=== PATIENT | female | born 1940 | race Two or more races ===

== ENCOUNTER 2025-01-01 19:05 | Emergency (ER) | payer OTHER ==
[~2025-01-01] VITALS: Ht 160 cm; Wt 55.6 kg
--- NOTE | 2025-01-01 20:24 | ED.PDOC ---
History of Present Illness HPI Comments 84F presents to the Er w/ no prior Hx associated to the c/c of a fall. pt reports on falling at 1720 today while mopping and has a LAC on the right face. Pt went to where they gave the pt a Trx, and was discharged but requested a head CT in the ER to rule out any intracranial hemorrhages or skull fractures. Denies chills, fever, N/ V/D, SOB, CP or other associated symptom's, modifiers, or recent injuries or sick contact at this time. Chief Complaint: Fall Injury Time Seen by MD: 20:00 Primary Care Provider: DEMETRIA Reviewed Notes: Nurses Notes, Medications, Allergies Allergies: Coded Allergies: Codeine (Verified Allergy, Unknown, 01/01/25) Penicillins (Verified Allergy, Unknown, 01/01/25) Information Source: Patient, Relative, Emergency Med Personnel Mode of Arrival: Ambulatory Severity: Moderate Timing: Minutes Duration: Since onset, Minutes Prehospital treatment: None Past Medical History PAST MEDICAL HISTORY: Denies Surgical History: Denies all surgeries DRAWBENCH OPERATOR HELPER History: No Pertinent DRAWBENCH OPERATOR HELPER History Family History Family History: Reviewed,noncontributory to illness, Unknown Social History Smoker: Non-Smoker Alcohol: Denies ETOH Use Drugs: Denies Drug Use Lives In: Home Constitutional: denies: chills, diaphoresis, fatigue, fever, malaise, sweats, weakness, others (face LAC) EENTM: reports: others (Right-sided head trauma); denies: blurred vision, double vision, ear bleeding, ear discharge, ear drainage, ear pain, ear ringing, eye pain, eye redness, hearing loss, mouth pain, mouth swelling, nasal discharge, nose bleeding, nose congestion, nose pain, photophobia, tearing, throat pain, throat swelling, voice changes Respiratory: denies: cough, hemoptysis, orthopnea, SOB at rest, shortness of breath, SOB with excertion, stridor, wheezing, others Cardiovascular: denies: chest pain, dizzy spells, diaphoresis, Dyspnea on exertion, edema, irregular heart beat, left arm pain, lightheadedness, palpitations, PND, syncope, others Gastrointestinal: denies: abdomen distended, abdominal pain, blood streaked bowels, constipated, diarrhea, dysphagia, difficulty swallowing, hematemesis, melena, nausea, poor appetite, poor fluid intake, rectal bleeding, rectal pain, vomiting, others Genitourinary: denies: abnormal vagina bleeding, burning, dyspareunia, dysuria, flank pain, frequency, hematuria, incontinence, pain, , vagina discharge, urgency, others Neurological: denies: dizziness, fainting, headache, left sided numbness, left sided weakness, numbness, paresthesia, pre-existing deficit, right sided numbness, right sided weakness, seizure, speech problems, tingling, tremors, weakness, others Musculoskeletal: denies: back pain, gout, joint pain, joint swelling, muscle pain, muscle stiffness, neck pain, others Integumetry: reports: laceration (Patient arrives with repaired laceration to right-sided face); denies: bruises, change in color, change in hair/nails, dryness, lesions, lumps, rash, wounds, others Allergic/Immunocompromised: denies: Difficulty Healing, Frequent Infections, Hives, Itching, others Hematologic/Lymphatic: denies: anemia, blood clots, easy bleeding, easy bruising, swollen glands, others Endocrine: denies: excessive hunger, excessive sweating, excessive thirst, excessive urination, flushing, intolerance to cold, intolerance to heat, unexplained weight gain, unexplained weight loss, others Psychiatric: denies: anxiety, bipolar disorder, depression, hopeless, panic disorder, schizophrenia, sleepless, suicidal, others All Other Systems: Reviewed and Negative Physical Exam General Appearance: No Apparent Distress (Patient was not in any distress at time of evaluation. The patient advise pleasant and conversational.), Normal HEENT: Head (Patient arrives with Steri-Strips and Dermabonded wound to right- sided face that has bandage. Patient has ecchymosis on the lateral aspect of the right eye and temporal region. No eye involvement.), Pharynx Normal, TMs Normal Neck: Full Range of Motion, Non-Tender, Normal, Normal Inspection Respiratory: Chest Non-Tender, Lungs Clear, No Accessory Muscle Use, No Respiratory Distress, Normal Breath Sounds Cardiovascular: No Edema, No JVD, No Murmur, No Gallop, Normal Peripheral Pulses, Regular Rate/Rhythm Breast Exam: Deferred Gastrointestinal: No Organomegaly, Non Tender, No Pulsatile Mass, Normal Bowel Sounds, Soft Genitalia: Deferred Pelvic: Deferred Rectal: Deferred Extremities: No calf tenderness, Normal capillary refill, Normal range of motion, Non-tender, No pedal edema Musculoskeletal : Apperance: Normal Neurologic: Alert, Normal Affect, Normal Mood Cerebellar Function: NOT DONE Reflexes: NOT DONE Skin: Dry, Normal Color, Warm Lymphatic: No Adenopathy Was a procedure done? Was a procedure done?: No Differential Dx Considerations may include: Subarachnoid hemorrhage, subdural hematoma, skull fracture, head trauma X-Ray, Labs, Meds, VS Vital Signs Date Time Temp Pulse Resp B/P (MAP) Pulse Ox O2 Delivery O2 Flow Rate FiO2 01/01/25 20:48 97.8 76 14 149/88 (108) 92 97.8 01/01/25 19:34 98.8 79 16 173/75 (107) 97 98.8 X-Ray, Labs, Meds, VS Comment All studies performed the ED were evaluated by me personally. Head CT was unremarkable for any subarachnoid hemorrhage, subdural hematoma or skull fracture. Advised patient utilize medication as prescribed by prior provider. Advised follow up with the primary care provider as advised. Time of 1ST Reevaluation: 22:00 Reevaluation 1ST: Improved Consultation: PCP Patient Education/Counseling: Diagnosis, Treatment, Prognosis Family Education/Counseling: Diagnosis, Treatment, No Family Present Departure 1 Departure Time of Disposition: 22:00 Impression: Primary Impression: Head trauma Disposition: 01 HOME / SELF CARE / HOMELESS Condition: Stable Additional Instructions: CT studies were unremarkable for any intracranial process. Advise continuation of wound management as advised by prior provider. Patient should follow up with primary care provider in the next few days for re-evaluation. Discharged With: Self, Relative Critical Care Note Critical Care Time?: No Stability Stability form required: No Heart Score Heart Score: Heart Score Response (Comments) Value History N/A 0 EKG N/A 0 Age N/A 0 Risk Factors N/A 0 Troponin N/A 0 Total 0 I personally scribed for KATHERIN MURRAY PAC ([email or web address]) on 01/01/25 at 20:24. Electronically submitted by Ellis Piper ([email or web address]). KATHERIN MURRAY PAC January 01, 2025 20:24
[2025-01-01 20:48] VITALS: BP 149/88; PULSE 76; RESP 14; TEMP 97.8; O2SAT 92
--- NOTE | 2025-01-01 21:44 | DVH ---
EXAM: CT HEAD WITHOUT CONTRAST INDICATION: Fall/right-sided head trauma TECHNIQUE: CT of the head without intravenous contrast. Radiation Dose Information: CT Dose: CTDI volume is 50.87 mGy. Dose-length product is 1002.63 mGy*cm The dose indicators for CT are the volume Computed Tomography (CT) Dose Index (CTDIvol) and the Dose Length Product (DLP), and are measured in units of mGy and mGy-cm, respectively. These indicators are not patient dose, but values generated from the CT scanner acquisition factors. The report includes radiation exposure data for exposures received during this examination. COMPARISON: None FINDINGS: There is no evidence of acute intracranial hemorrhage, extra-axial collection, mass effect, midline s hift, herniation or hydrocephalus. The ventricles, sulci and cisterns are age appropriate. The swenson-white differentiation is intact. Patchy periventricular and subcortical white matter hypoattenuation is nonspecific but may be related to small vessel ischemic disease. The visualized paranasal sinuses and mastoid air cells are clear. The surrounding soft tissues and osseous structures are unremarkable. IMPRESSION: 1. No acute intracranial hemorrhage 2. No CT findings of territorial ischemia. 3. 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 No CT findings of displaced skull fracture. HS:Y
[2025-01-01] MEDS: HYDROcodone-ACET 5/325MG TAB PO ONE (22:21)
== END 2025-01-01 22:22 | disposition home or self-care (01) ==
LOC: ER 19:07
DX: S01.81XA Laceration without foreign body of other part of head, initial encounter (principal); Z88.0 Allergy status to penicillin; Z88.5 Allergy status to narcotic agent; W18.39XA Other fall on same level, initial encounter; Y93.89 Activity, other specified; Y92.89 Other specified places as the place of occurrence of the external cause; Y99.8 Other external cause status
CPT/HCPCS: 70450

== ENCOUNTER 2025-06-16 22:31 | Emergency (ER) | payer MEDICARE, MEDICAID ==
[~2025-06-16] VITALS: Ht 149.9 cm; Wt 50.0 kg
--- NOTE | 2025-06-16 23:46 | DVH ---
INDICATION: lumbar back pain TECHNIQUE: 4 views of the lumbar spine were obtained. COMPARISON: None Findings/impression: 1. Indeterminate age compression fracture of the T11 vertebral body. 2. Moderate degenerative changes throughout the lumbar spine.
[2025-06-17 00:10] VITALS: BP 138/68; PULSE 74; RESP 18; TEMP 97.9; O2SAT 98
[2025-06-17] MEDS ORDERED: METH-1181 PO (00:19)
--- NOTE | 2025-06-17 00:19 | ED.PDOC ---
Back pain HPI HPI Comments 85-YEAR-OLD FEMALE PRESENTS TO ER WITH COMPLAINTS OF BACK PAIN X1 DAY. PATIENT WITH PAST MEDICAL HISTORY SIGNIFICANT FOR CHRONIC LOWER LUMBAR BACK PAIN REPORTS THAT SHE STARTED EXPERIENCING WORSENING LOWER LUMBAR BACK PAIN THIS MORNING. DENIES ANY TRAUMA/FALLS OR KNOWN INJURY TO CAUSE OR WORSENING LOWER BACK PAIN AND RATES HER CURRENT PAIN A 10/10 DIFFUSE TO LOWER LUMBAR REGION WITHOUT RADIATION. REPORTS THAT SHE HAS BEEN TAKING NORCO 10/325 MG WITH SLIGHT RELIEF AND REPORTS THAT SHE HAS HAD IMPROVEMENT WITH HER ACUTE EXACERBATIONS OF BACK PAIN WITH METHOCARBAMOL IN THE PAST. PATIENT PRESENTS TO ER IN WHEELCHAIR IN MILD DISTRESS WITH VITALS STABLE. DENIES FEVER, BODY ACHES, CHILLS, NIGHT SWEATS, SHORTNESS OF BREATH, CHEST PAIN, ABDOMINAL/PELVIC PAIN, EXTREMITY WEAKNESS, CHANGES IN URINATION/BM OR ANY FURTHER SYMPTOMS/COMPLAINTS Chief Complaint: Back Pain Time Seen by MD: 22:45 Primary Care Provider: DEMETRIA Oquendo Notes: Nurses Notes, Medications, Allergies Allergies: Coded Allergies: Codeine (Verified Allergy, Unknown, 01/01/25) Penicillins (Verified Allergy, Unknown, 01/01/25) Home Meds Active Scripts Methocarbamol (Methocarbamol) 500 Mg Tab, 500 MG PO Q6HPRN, #14 TAB 0 Refills Prov:YOJANA MILIAN 06/17/25 Information Source: Patient Mode of Arrival: EMS Past Medical History PAST MEDICAL HISTORY: UTI'S Past Medical History (Other): CHRONIC LUMBAR BACK PAIN T11 FX Surgical History (Other): SPINAL STIMULATOR OPHTHALMIC PATHOLOGIST History: No Pertinent OPHTHALMIC PATHOLOGIST History Family History Family History: Unknown Social History Smoker: Non-Smoker Alcohol: Denies ETOH Use Drugs: Denies Drug Use Lives In: Home Constitutional: denies: chills, diaphoresis, fatigue, fever, malaise, sweats, weakness, others EENTM: denies: blurred vision, double vision, ear bleeding, ear discharge, ear drainage, ear pain, ear ringing, eye pain, eye redness, hearing loss, mouth pain, mouth swelling, nasal discharge, nose bleeding, nose congestion, nose pain, photophobia, tearing, throat pain, throat swelling, voice changes, others Respiratory: denies: cough, hemoptysis, orthopnea, SOB at rest, shortness of breath, SOB with excertion, stridor, wheezing, others Cardiovascular: denies: chest pain, dizzy spells, diaphoresis, Dyspnea on exertion, edema, irregular heart beat, left arm pain, lightheadedness, palpitations, PND, syncope, others Gastrointestinal: denies: abdomen distended, abdominal pain, blood streaked bowels, constipated, diarrhea, dysphagia, difficulty swallowing, hematemesis, melena, nausea, poor appetite, poor fluid intake, rectal bleeding, rectal pain, vomiting, others Genitourinary: denies: abnormal vagina bleeding, burning, dyspareunia, dysuria, flank pain, frequency, hematuria, incontinence, pain, , vagina discharge, urgency, others Neurological: denies: dizziness, fainting, headache, left sided numbness, left sided weakness, numbness, paresthesia, pre-existing deficit, right sided numbness, right sided weakness, seizure, speech problems, tingling, tremors, weakness, others Musculoskeletal: reports: others ( IN HPI) Integumetry: denies: bruises, change in color, change in hair/nails, dryness, laceration, lesions, lumps, rash, wounds, others Allergic/Immunocompromised: denies: Difficulty Healing, Frequent Infections, Hives, Itching, others Hematologic/Lymphatic: denies: anemia, blood clots, easy bleeding, easy bruising, swollen glands, others Endocrine: denies: excessive hunger, excessive sweating, excessive thirst, excessive urination, flushing, intolerance to cold, intolerance to heat, unexplained weight gain, unexplained weight loss, others Psychiatric: denies: anxiety, bipolar disorder, depression, hopeless, panic disorder, schizophrenia, sleepless, suicidal, others Physical Exam General Appearance: Mild Distress HEENT: PERRL/EOMI Neck: Full Range of Motion, Non-Tender, Normal Respiratory: Chest Non-Tender, Lungs Clear, No Accessory Muscle Use, No Respiratory Distress, Normal Breath Sounds Cardiovascular: No Murmur, No Gallop, Regular Rate/Rhythm Breast Exam: Deferred Gastrointestinal: Non Tender, No Pulsatile Mass, Soft Genitalia: Deferred Pelvic: Deferred Rectal: Deferred Extremities: Normal capillary refill, Normal range of motion Musculoskeletal : Extremity Location: Back (TTP TO BILATERAL LOWER LUMBAR PARASPINALS NOTED. NO SKIN CHANGES NOTED. NO BONY TENDERNESS TO LUMBAR/THORACIC SPINE NOTED. GAIT SLOWED WITH USE OF ASSISTANCE) Neurologic: Alert, No Motor Deficits, No Sensory Deficits Cerebellar Function: Normal Reflexes: Normal Skin: Dry, Normal Color, Warm Peripheral Pulses: 2+ carotid (R), 2+ carotid (L), 2+ femoral (R), 2+ femoral (L), 2+ dorsalis pedis (R), 2+ dorsalis pedis (L), 2+ Radial (R), 2+ Radial (L), 2+ Brachial (R), 2+ Brachial (L) Lymphatic: No Adenopathy Was a procedure done? Was a procedure done?: No Sedation Sedation?: No Back Pain Differential Dx Differential Diagnosis: AAA, Fracture, Urolithiasis X-Ray, Labs, Meds, VS Vital Signs Date Time Temp Pulse Resp B/P (MAP) Pulse Ox O2 Delivery O2 Flow Rate FiO2 06/17/25 00:10 97.9 74 18 138/68 (91) 98 97.9 06/17/25 00:10 Room Air* 0 21 06/16/25 22:33 97.9 74 18 138/68 98 97.9 PATIENT: BELLA YORKCT: [id number]: [id number] : 1940 LOC: ER ROOM / BED: / AGE / SEX: 85 / F ADM STATUS: REG ER SERVICE 45 ORDERING PHYSICIAN: YOJANA MILIAN PROCEDURE(s): LUMB2 - LUMBAR SPINE 3 VIEW REASON: lumbar back pain ORDER NUMBER(s): [id number], ACCESSION NUMBER(s): [id number] INDICATION: lumbar back pain TECHNIQUE: 4 views of the lumbar spine were obtained. COMPARISON: None Findings/impression: 1. Indeterminate age compression fracture of the T11 vertebral body. 2. Moderate degenerative changes throughout the lumbar spine. ATED BY: YVONNE SYLVESTER MD DICTATED DATE/TIME: 06/16/252343 SIGNED BY: YVONNE SYLVESTER MD SIGNED DATE/TIME: 06/16/252343 CC: LUMBAR SPINE X-RAY REVIEWED NORCO 10/325 MG P.O. ORDERED URINALYSIS ORDERED- PATIENT SPILLED URINE CUP UPON ATTEMPTING TO GIVE URINE SAMPLE - PATIENT'S GRANDDAUGHTER VERBALIZED THAT PATIENT IS "PRONE TO UTIS", I WILL PRESCRIBE AN ANTIBIOTIC TO COVER FOR POSSIBLE UTI CAUSING PATIENTS WORSENING LUMBAR BACK PAIN PATIENT NEUROVASCULARLY INTACT AND REPORTED IMPROVEMENT IN SYMPTOMS PRIOR TO DISCHARGE ADVISED TO FOLLOW UP WITH PCP AND PAIN MANAGEMENT IN 1-2 DAYS PATIENT AND PATIENT'S GRANDMOTHER VERBALIZED UNDERSTANDING AND AGREEABLE WITH CURRENT PLAN OF CARE ADVISED TO RETURN TO ER IMMEDIATELY IF SYMPTOMS WORSEN Images Reviewed?: Images reviewed and evaluated by me Time of 1ST Reevaluation: 00:00 Reevaluation 1ST: N/A Patient Education/Counseling: Diagnosis, Treatment, Prognosis, Need For Follow Up Family Education/Counseling: Diagnosis, Treatment, Prognosis, Need For Follow Up SEPSIS Sepsis Screen Date sepsis recognized/suspect: Jun 16, 2025 Time Sepsis recognized/suspect: 2235 Recent Procedure: No On Antibiotic Therapy: No Respiratory Rate >20: No Heart Rate >90: No Temp<36 C (96.8 F) or >38.3 C: No SBP <90 or MAP <65 mmHG: No New Acute Mental Status Change: No Is the patient on CPAP, BIPAP,: No Physician Orders Urinalysis (06/16/25 22:46) Lumbar Spine 3 View (06/16/25 22:46) Vital Signs Date Time Temp Pulse Resp B/P (MAP) Pulse Ox O2 Delivery O2 Flow Rate FiO2 06/17/25 00:10 97.9 74 18 138/68 (91) 98 97.9 06/17/25 00:10 Room Air* 0 21 06/16/25 22:33 97.9 74 18 138/68 98 97.9 Departure 1 Departure Time of Disposition: 00:22 Impression: Primary Impression: Acute exacerbation of chronic low back pain Disposition: 01 HOME / SELF CARE / HOMELESS Condition: Stable e-Prescriptions Sulfamethoxazole W/Trimethopri (Bactrim Ds Tablet) 1 Tab Tb 1 TAB PO BID for 7 Days, #14 TAB 0 Refills Prov: YOJANA MILIAN 06/17/25 Methocarbamol (Methocarbamol) 500 Mg Tab 500 MG PO Q6HPRN, #14 TAB 0 Refills Prov: YOJANA MILIAN 06/17/25 Discharged With: Other (GRANDDAUGHTER) Critical Care Note Critical Care Time?: No Stability Stability form required: No Heart Score Heart Score: Heart Score Response (Comments) Value History N/A 0 EKG N/A 0 Age N/A 0 Risk Factors N/A 0 Troponin N/A 0 Total 0 YOJANA MILIAN Jun 17, 2025 00:19
[2025-06-17] MEDS: HYDROcodone-ACET 10/325MG TAB PO ONE (00:23)
[2025-06-17] MEDS ORDERED: BACDST PO (00:25)
== END 2025-06-17 00:34 | disposition home or self-care (01) ==
LOC: EDBD 22:31 → ER 22:31
DX: G89.29 Other chronic pain (principal); Z79.899 Other long term (current) drug therapy; Z88.5 Allergy status to narcotic agent; Z88.0 Allergy status to penicillin; Z87.440 Personal history of urinary (tract) infections
CPT/HCPCS: 72100